=== PATIENT | female | born 2000 | race Two or more races ===

== ENCOUNTER → 2024-10-05 | Outpatient (CLI) | payer BC, SELFPAY ==
--- NOTE | 2024-10-05 11:37 | XR_ITS ---
Examination: Complete OB ultrasound greater than 14 weeks Date and time of exam: September 27, 2024 1138 hours INDICATIONS: Diagnosis high risk , high blood pressure today Findings: Viable intrauterine single fetus with single amniotic sac presentation cephalic spine maternal right Cardiac motion 147 BPM Placenta posterior grade 1 Umbilical cord insertion 3 vessel seen Amniotic fluid index 14.4 cm Cervix 3.9 cm closed Right ovary 2.7 cm arterial flow Left ovary 3.5 cm arterial flow. Composite estimated gestational age based on BPD, head circumference, abdominal circumference, femur length is 27 weeks 1 day Estimated weight 995 g. Survey of intracranial anatomy, spinal anatomy, abdominal anatomy, four-chamber heart performed with no abnormalities identified. Impression: Viable intrauterine gestation cephalic presentation.
[2024-10-05 14:55] LABS: Glucose,1 Hour PP 50gm Dose 141 mg/dL (80-140)
[2024-10-05 16:20] LABS: Syphilis Nonreactive (Nonreactive)
[2024-10-11 07:17] LABS: HIV Ag/Ab, 4th Gen NON-REACTIVE
== END | disposition home or self-care (01) ==
LOC: CDIM 11:30 → COPL 12:07
PROVIDERS: Referring Provider Obstetrics & Gynecology; Visit Provider Obstetrics & Gynecology
DX: O09.93 Supervision of high risk pregnancy, unspecified, third trimester (principal); Z3A.00 Weeks of gestation of pregnancy not specified
CPT/HCPCS: 36415; 76805; 82950; 86780; 87389

== ENCOUNTER → 2024-10-12 | Outpatient (CLI) | payer BC, SELFPAY ==
--- NOTE | 2024-10-12 16:08 | XR_ITS ---
Examination: Complete OB ultrasound greater than 14 weeks Date and time of exam: October 12, 2024, 1617 hours INDICATIONS: Size dates discrepancy, diagnosis high risk , diagnosis -induced hypertension Findings: Viable intrauterine single fetus with single amniotic sac presentation breech spine anterior Placental fundal posterior grade 2 Umbilical cord insertion seen Amniotic fluid index 15.7 cm Cervix 4.2 cm Right ovary 3.1 cm arterial flow. Left ovary 3.4 cm arterial flow. Composite estimated gestational age based on BPD, head circumference, abdominal circumference, femur length is 28 weeks 2 days Estimated weight 1186.6 g. Survey of intracranial anatomy, spinal anatomy, abdominal anatomy, four-chamber heart performed with no abnormalities identified. Impression: Viable uterine gestation breech presentation Estimated gestational age 28 weeks 2 days Estimated weight 1186.6 g.
== END | disposition home or self-care (01) ==
LOC: CDIM 15:58
PROVIDERS: Referring Provider Obstetrics & Gynecology; Visit Provider Obstetrics & Gynecology
DX: O32.1XX0 Maternal care for breech presentation, not applicable or unspecified (principal); Z3A.28 28 weeks gestation of pregnancy
CPT/HCPCS: 76805

== ENCOUNTER → 2024-11-07 | Outpatient (CLI) | payer BC, SELFPAY ==
[2024-11-07 13:16] LABS: Basophils # (Auto) 0.1 Thou/mm3 (0.0-0.2); Basophils % (Auto) 1 % (0-2.5); Eosinophils # (Auto) 0.1 Thou/mm3 (0.0-0.5); Eosinophils % (Auto) 1 % (0-10); Hematocrit 33.2 % (36.0-46.0); Hemoglobin 11.2 g/dL (12.0-16.0); Immature Granulocytes % (Auto) 3 % (0-0); Immature Granulocytes Auto 0.28 Thou/mm3 (0.00-0.00); Lymphocytes # (Auto) 1.5 Thou/mm3 (1.0-4.8); Lymphocytes % (Auto) 14 % (10-50); Mean Corpuscular HGB Conc 33.7 g/dl (31.0-37.0); Mean Corpuscular Hemoglobin 28.4 pg (25.0-35.0); Mean Corpuscular Volume 84 fL (80-100); Monocytes # (Auto) 0.7 Thou/mm3 (0.0-0.8); Monocytes % (Auto) 7 % (0-12); Neutrophils # (Auto) 8.1 Thou/mm3 (1.8-7.7); Neutrophils % (Auto) 76 % (37-80); Nucleated Red Blood Cell % 0 /100 WBC (0); Platelet Count 345 Thou/mm3 (140-440); RDW Standard Deviation 42.9 fL (36.4-46.3); Red Blood Count 3.94 Miln/mm3 (4.00-5.20); White Blood Count 10.7 Thou/mm3 (3.6-11.0)
[2024-11-07 14:01] LABS: Syphilis Nonreactive (Nonreactive)
== END | disposition home or self-care (01) ==
LOC: COPL 11:55
PROVIDERS: PCP Family Medicine; Referring Provider Obstetrics & Gynecology; Visit Provider Obstetrics & Gynecology
DX: O09.93 Supervision of high risk pregnancy, unspecified, third trimester (principal); Z3A.00 Weeks of gestation of pregnancy not specified
CPT/HCPCS: 36415; 85025; 86780; 87389

== ENCOUNTER 2024-12-20 12:29 | Inpatient (IN) | payer MEDICAID, SELFPAY ==
[2024-12-20] VITALS (110 sets, daily range): BP systolic 83–160; BP diastolic 45–84; PULSE 78–127; RESP 18–20; TEMP 36.7–36.9; O2SAT 90–99; BMI 31.6
[2024-12-20 13:15] LABS: ROM Kit Lot # 578010271; ROM Swab Mixed By: JD; Rupture of Fetal Membranes Positive (Negative); Swb Mxed in Solvent 1 min? Yes
--- NOTE | 2024-12-20 13:38 | XR_ITS ---
Examination: Complete OB ultrasound greater than 14 weeks Date and time of exam: December 20, 2024 1400 hours INDICATIONS: Water broke, leaking amniotic fluid today, no care Findings: Viable intrauterine single fetus with single amniotic sac presentation cephalic Cardiac motion 147 BPM Placenta fundal grade 2 Umbilical cord insertion 3 vessel seen Amniotic fluid index 5.8 cm Cervix 3.4 cm Ovaries obscured by bowel gas. Composite estimated gestational age based on BPD, head circumference, abdominal circumference, femur length is 37 weeks 1 day Estimated weight 3311.8 g. Survey of intracranial anatomy, spinal anatomy, abdominal anatomy, four-chamber heart performed with no abnormalities identified. Impression: Viable intrauterine gestation cephalic presentation.
[2024-12-20 15:55] LABS: Basophils % (Auto) 0 % (0-2.5); Eosinophils # (Auto) 0.1 Thou/mm3 (0.0-0.5); Eosinophils % (Auto) 1 % (0-10); Hematocrit 34.4 % (36.0-46.0); Immature Granulocytes % (Auto) 2 % (0-0); Immature Granulocytes Auto 0.18 Thou/mm3 (0.00-0.00); Lymphocytes # (Auto) 1.3 Thou/mm3 (1.0-4.8); Lymphocytes % (Auto) 11 % (10-50); Mean Corpuscular HGB Conc 34.9 g/dl (31.0-37.0); Mean Corpuscular Volume 80 fL (80-100); Monocytes # (Auto) 0.8 Thou/mm3 (0.0-0.8); Monocytes % (Auto) 7 % (0-12); Neutrophils % (Auto) 79 % (37-80); Nucleated Red Blood Cell % 0 /100 WBC (0); Platelet Count 314 Thou/mm3 (140-440); RDW Standard Deviation 42.4 fL (36.4-46.3); Red Blood Count 4.29 Miln/mm3 (4.00-5.20); White Blood Count 11.4 Thou/mm3 (3.6-11.0)
[2024-12-20 16:05] LABS: Amphetamine/Metham Scrn,Ur OB Negative (Negative); Benzoylecgonine Screen, Ur OB Negative (Negative); Opiate Screen,Urine OB Negative (Negative); THC Screen,Urine OB Negative (Negative)
[2024-12-20] MEDS: OXYTOCIN in NS 30 units 30 UNIT/500 ML BAG IV (16:18)
[2024-12-20 16:31] LABS: Syphilis Nonreactive (Nonreactive)
[2024-12-20] MEDS: RINGERS LACTATED 1000 ML 1,000 ML 100 ML IV ×2 (18:41→19:17)
[2024-12-20] MEDS: MINERAL OIL 30 ML UDC TOP (21:28)
[2024-12-20] MEDS: MISOPROSTOL 200 mCg TABLET 800 MCG PR (21:32)
[2024-12-20] MEDS: OXYTOCIN INJ 10 UNIT/ML VIAL IM (21:32)
[2024-12-20] MEDS: METHYLERGONOVINE INJ 0.2 MG/ML VIAL IM (21:39)
[2024-12-20] MEDS: OXYTOCIN in NS 20 units 20 UNIT/1,000 ML BAG 125 UNIT IV (21:43)
[2024-12-20] MEDS: BENZO/LANO/ALOE (Dermoplast) 60 GM CAN 1 SPRAY TOP (21:53)
[2024-12-20] MEDS: TRANEXAMIC ACID 1,000 MG IVPB 1,000 MG/100 ML BAG 200 MG IV ×2 (22:07→23:12)
--- NOTE | 2024-12-20 22:23 | ESHP_ITS ---
Documentation for date of: 12/20/24 OB Labor/Induct. HPI History of Present Illness Chief complaint: ROM : 1 Para: 0 Term pregnancies: 0 pregnancies: 0 Living children: 0 History of Abortions: Spontaneous and Elective: 0 History of Vaginal deliveries: 0 History of sections: No History of : No Date of last menstrual period: 03/30/24 YADIRA: 01/03/25 Gestational Age (weeks): 38 Gestational Age (days): 0 Gestational age based on last menstrual period: 37 History of present illness: This is a 24-year-old 1 para 0 admit to labor and delivery with complaints of leaking fluid since 11 AM. And she also reports starting contractions around 11 as well. Denies social habits. Denies surgery. Denies chronic illness. Patient has been followed both at [facility] and [facility]. Last period March 30, 2024. And this gave a due date of January 03, 2025. Patient had an ultrasound October 05 weeks 1 of that confirmed dates. was uneventful except for UTI that was treated with ampicillin. Patient is A+, antibody screen negative, RPR nonreactive, rubella immune, hepatitis B negative, hep C negative, HIV negative, GC and Chlamydia were negative. 1 hour screen negative. And GBS was negative. Patient had a positive screen for THC. NIPT and carrier screens were negative. Patient was late to care History of Present Dating criteria: LMP confirmed by 2nd trimester US Adequate Care: Yes Ultrasounds: normal mid trimester US Obstetrical complications: none Medical complications: none Labs Labs: Positive: Rubella Titre, Negative: RPR, Hepatitis B, HIV, Chlamydia and Gonorrhea and Unknown: Herpes Type 1, Herpes Type 2, Group Beta Strep and Covid-19 Review of Systems Review of Systems Systems Reviewed: All systems reviewed, normal except as documented Past Medical History Surgical History SURGICAL: Negative Section Meds Home Medications and Allergies Allergies Allergy/AdvReac Type Severity Reaction Status Date / Time No Known Allergies Allergy Verified 12/20/24 12:50 OB Exam Physical Exam Vital signs: Temp Pulse Resp BP Pulse Ox 98.4 F 98 19 113/72 91 L 12/20/24 16:00 12/20/24 21:46 12/20/24 16:00 12/20/24 21:46 06/12/25 21:28 Narrative: Alert and oriented. Normal heart rate and rhythm. Lungs clear no wheezes. Gravid uterus. Gynecoid pelvis. Exam on admission was 80%, 2, -1. Vertex. Leaking clear fluid and positive AmniSure. heart rate category 1 with accelerations and moderate variability. Contractions 4 to 5 minutes apart. And patient had ultrasound that showed vertex presentation and 3300 g EFW was 6 pounds 8 ounces Detailed Labor and Delivery Exam Dilation (cm): 2 Effacement (%): 80 Cervix position: mid station: -1 Consistency: soft Presentation: Vertex Cervical ripeness score: 6 Membranes: ruptured Amniotic fluid: clear Baseline heart rate: 145 monitor accelerations: 15x15 monitor decelerations: None assistant terminal manager variability: Moderate (11-25) Contraction frequency (min): 4-5 Contraction duration (sec): 40 Tachysystole: No Contraction intensity: Moderate OB Results Labs 12/20/24 15:35 Labs: Short CBC 12/20/24 Range/Units 15:35 WBC 11.4 H (3.6-11.0) Thou/mm3 Hgb 12.0 (12.0-16.0) g/dL Hct 34.4 L (36.0-46.0) % Plt Count 314 (140-440) Thou/mm3 OB Assessment & Plan Assessment and Plan (1) Normal labor and delivery: Status: Acute Additional Plan Induction method: none Plan: augmentation, anticipate NVD and consult MD reese
--- NOTE | 2024-12-20 22:29 | OBDSUM_ITS ---
Data ([place]) Data Hx Section: No : 1 Term: 0 : 0 Livin Abortions: Spontaneous & Theraputic: 0 Delivery Data ([place]) Labor Data Initiation of labor: Induction Induction/Augmentation Agent: Pitocin ROM date: 12/20/24 ROM time: 11:30 Amniotic membrane rupture type: Spontaneous Amniotic fluid description: Light Meconium Delivery Data EDC: 01/03/25 EDC calculated by:: ultrasound Date of arrival to unit: 12/20/24 Onset of labor date: 12/20/24 Onset of labor time: 11:30 Complete dilation date: 12/20/24 Complete dilation time: 21:10 delivery date: 12/20/24 [place] delivery time: 21:29 Gestational age (weeks): 38 Gestational age (days): 0 Placenta delivery date: 12/20/24 Placenta delivery time: 21:35 Stage 1 total time: Labor - Stage 1 Duration 9 hours and 40 minutes Delivered by: Ben Villalobos Delivery nurse: Ángel MCDANIEL RN [facility] nurse: Allison MERAZ RN Lane Marker Installer at delivery: No Support person(s) at delivery: FATHER OF BABY ALEXUS Other staff at delivery: Robby NOWAK RN Delivery Method Delivery method: Normal Vaginal Delivery Presentation: Vertex position: OA Anesthesia Type Anesthesia Type: Epidural Delivery Room Medications Delivery room medications: Methergine 0.2 mg IM, Pitocin 10 u IM, Pitocin 20 u IV, Cytotec 800 VT and other (TXA) Placenta Placenta delivery description: Spontaneous (inspected. intact) Cord blood sent to lab: Yes cord blood collection: Cord Blood Type Episiotomy Episiotomy description: Midline Lacerations #1: Vaginal: 1st degree Perineal repair Sutures used for repair: 3.0 Vicryl (2.0) EBL Estimated blood loss (ml): 400 Umbilical Cord cord description: 3 Vessels, Nuchal Cord and Loose (x2) [place] Data ([place]) [place] Data 's gender: Male Identification band number: [id number] 1 minute: 9 5 minutes: 9
[2024-12-21 00:01] VITALS: BP 115/61; PULSE 89
[2024-12-21 04:50] VITALS: BP 117/77; RESP 18; TEMP 36.7
[2024-12-21 05:51] LABS: Basophils % (Auto) 0 % (0-2.5); Eosinophils % (Auto) 0 % (0-10); Hematocrit 30.4 % (36.0-46.0); Hemoglobin 10.6 g/dL (12.0-16.0); Immature Granulocytes % (Auto) 1 % (0-0); Immature Granulocytes Auto 0.17 Thou/mm3 (0.00-0.00); Lymphocytes # (Auto) 1.5 Thou/mm3 (1.0-4.8); Lymphocytes % (Auto) 8 % (10-50); Mean Corpuscular HGB Conc 34.9 g/dl (31.0-37.0); Mean Corpuscular Volume 80 fL (80-100); Monocytes # (Auto) 1.1 Thou/mm3 (0.0-0.8); Monocytes % (Auto) 6 % (0-12); Neutrophils # (Auto) 15.1 Thou/mm3 (1.8-7.7); Neutrophils % (Auto) 84 % (37-80); Nucleated Red Blood Cell % 0 /100 WBC (0); Platelet Count 275 Thou/mm3 (140-440); RDW Standard Deviation 42.5 fL (36.4-46.3); Red Blood Count 3.79 Miln/mm3 (4.00-5.20); White Blood Count 17.9 Thou/mm3 (3.6-11.0)
--- NOTE | 2024-12-21 07:16 | ESDS_ITS ---
DS: Providers Provider Date of admission: 12/20/24 13:44 Primary care physician: Physician No Primary/Family Admitting Provider: Chavez Cheng MD Attending Provider on Admission: Malachi Potter MD Consults: 12/21/24 01:04 Referral Routine Comment: Attending Provider on DC: Malachi Potter MD Discharging Provider: Malachi Potter MD DS: Diagnosis Problem List Completed Was Problem List Reviewed/Reconciled?: Yes Summary/Hosp Course Brief History: This is a 24-year-old 1 para 0 admit to labor and delivery with complaints of leaking fluid since 11 AM. And she also reports starting contractions around 11 as well. Denies social habits. Denies surgery. Denies chronic illness. Patient has been followed both at [facility] and [facility]. Last period March 30, 2024. And this gave a due date of January 03, 2025. Patient had an ultrasound October 05 weeks 1 of that confirmed dates. was uneventful except for UTI that was treated with ampicillin. Patient is A+, antibody screen negative, RPR nonreactive, rubella immune, hepatitis B negative, hep C negative, HIV negative, GC and Chlamydia were negative. 1 hour screen negative. And GBS was negative. Patient had a positive screen for THC. NIPT and carrier screens were negative. Patient was late to care Peripartum Data Delivery Method: Normal Vaginal Delivery Episiotomy Description: Midline Time Spent with Patient Time attestation: Total time spent providing and/or coordinating discharge services: Exam Vital Signs Temp Pulse Resp BP Pulse Ox O2 Del Method 98.0 F 89 18 117/77 91 L Room Air 12/21/24 04:50 12/21/24 00:01 12/21/24 04:50 12/21/24 04:50 12/20/24 21:28 12/21/24 04:50 Discharge Plan Plan Patient Disposition: HOME (Self Care) Patient condition on transfer: Stable Prescriptions/Referrals Prescriptions/Med Rec: New ibuprofen 600 mg tablet 600 mg PO Q6H PRN (Reason: pain) Qty: 30 0RF PNV cmb#95-ferrous fumarate-FA [] 28 mg iron- 800 mcg tablet 1 tab PO QDAY Qty: 90 3RF Referrals: No Primary/Family,Physician [Primary Care Provider] - Patient/Caregiver Discharge Instructions Discharge Activity: activity as tolerated Other Discharge Activity Instructions:: Follow up office with Shannon in 6 wks. Print Language: [place] Island[place] Stand Alone Forms: Shasha Award Info., Patient Portal Info Letter Planned Discharge Date 12/21/24
[2024-12-21 08:00] VITALS: BP 119/79; RESP 16; TEMP 36.8
[2024-12-21] MEDS: DOCUSATE SOD 100 MG CAPSULE PO (09:00)
[2024-12-21] MEDS: IBUPROFEN TAB 400 MG TABLET 800 MG PO ×2 (09:00→17:22)
--- NOTE | 2024-12-21 09:56 | ESPR_ITS ---
RE: OBINNA CLAYTON : 2000 DATE OF SERVICE: 12/21/2024 SUBJECTIVE: day #1, the patient denies any problem or complaint. She is voiding and ambulating and tolerating her diet, passing flatus. She denies any vaginal bleeding. She denies any chest pain, palpitations, shortness of breath, or lower extremity pain. OBJECTIVE: Vital Signs: Blood pressure 117/77, heart rate 88, respirations 18, temperature 98. Lungs: Clear to auscultation bilaterally. Heart: Regular rate and rhythm. Abdomen: Nontender. Extremities: Nontender. ASSESSMENT: day #1, status post spontaneous vaginal delivery. PLAN: Discharge home. Discharge instructions were given. Follow up in the office in 6 weeks. DT: 07:12:44 TT: 09:54:00 Ref: [id number] - TID: [id number]
[2024-12-21 12:10] VITALS: BP 121/77; RESP 18; TEMP 37
--- NOTE | 2024-12-21 12:40 | PD.LDPPPRG ---
Subjective Subjective Interval history: No complaints of pain. No dizziness. Bonding and breast-feeding Exam Vital Signs Temp Pulse Resp BP Pulse Ox O2 Del Method 98.3 F 89 16 119/79 91 L Room Air 12/21/24 08:00 12/21/24 00:01 12/21/24 08:00 12/21/24 08:00 12/20/24 21:28 12/21/24 08:00 Narrative Exam Vital signs stable. Afebrile. Fundus firm below the umbilicus. Perineum has minimal swelling. Midline episiotomy well-approximated. No signs symptoms of infection. Small lochia. Uterus well involuted. 2+ DTRs negative Homans' sign. Breasts are soft Objective Labs 12/21/24 04:45 Labs: Laboratory Results - last 24 hr 12/20/24 12/20/24 12/20/24 12:57 15:10 15:35 WBC 11.4 H RBC 4.29 Hgb 12.0 Hct 34.4 L MCV 80 MCH 28.0 MCHC 34.9 RDW Std Deviation 42.4 Plt Count 314 Neut % (Auto) 79 Lymph % (Auto) 11 [place] % (Auto) 7 Eos % (Auto) 1 Baso % (Auto) 0 Neut # (Auto) 9.0 H Lymph # (Auto) 1.3 [place] # (Auto) 0.8 Eos # (Auto) 0.1 Baso # (Auto) 0.0 Immature Gran # (Auto) 0.18 H Absolute Nucleated RBC 0.00 Immature Gran % 2 H Nucleated RBC % 0 Membrane Rupture Positive A Urine Opiates Screen Negative U Amphetamin/Meth Scrn Negative U Cocaine Metab Screen Negative U Marijuana (THC) Screen Negative Syphilis Serology Nonreactive Blood Type A Positive Antibody Screen NEGATIVE Blood Bank Wristband ID Yes 12/21/24 04:45 WBC 17.9 H D RBC 3.79 L Hgb 10.6 L Hct 30.4 L MCV 80 MCH 28.0 MCHC 34.9 RDW Std Deviation 42.5 Plt Count 275 D Neut % (Auto) 84 H Lymph % (Auto) [address] [place] % (Auto) 6 Eos % (Auto) 0 Baso % (Auto) 0 Neut # (Auto) 15.1 H Lymph # (Auto) 1.5 [place] # (Auto) 1.1 H Eos # (Auto) 0.0 Baso # (Auto) 0.0 Immature Gran # (Auto) 0.17 H Absolute Nucleated RBC 0.00 Immature Gran % 1 H Nucleated RBC % 0 Membrane Rupture Urine Opiates Screen U Amphetamin/Meth Scrn U Cocaine Metab Screen U Marijuana (THC) Screen Syphilis Serology Blood Type Antibody Screen Blood Bank Wristband ID Assessment & Plan Problem List (1) Normal labor and delivery: Status: Acute Assessment Comment Assessment comment: 24 hr pp Plan Comment Plan Comment: Discharge home today. Patient may board if baby is held. Discussed comfort measures for midline episiotomy. Sitz bath's twice a day. Increase fluids. Continue vitamins. Tylenol or ibuprofen for pain. Discussed danger signs and symptoms and ER precautions. Return in 3 weeks for visit with provider Time Spent With Patient Time: Total time spent is greater than 50% in coordination of care (as documented) at patient's floor/unit and/or counseling patient:
--- NOTE | 2024-12-21 12:43 | PD.LDDS ---
DS: Providers Provider Date of admission: 12/20/24 13:44 Primary care physician: Physician No Primary/Family Admitting Provider: Chavez Cheng MD Attending Provider on Admission: Malachi Potter MD Consults: 12/21/24 01:04 Referral Routine Comment: Attending Provider on DC: Shannon Villalobos CNM Discharging Provider: Shannon Villalobos CNM DS: Diagnosis Problem List Completed Was Problem List Reviewed/Reconciled?: Yes Summary/Hosp Course Brief History: This is a 24-year-old 1 para 0 admit to labor and delivery with complaints of leaking fluid since 11 AM. And she also reports starting contractions around 11 as well. Denies social habits. Denies surgery. Denies chronic illness. Patient has been followed both at [facility] and [facility]. Last period March 30, 2024. And this gave a due date of January 03, 2025. Patient had an ultrasound October 05 weeks 1 of that confirmed dates. was uneventful except for UTI that was treated with ampicillin. Patient is A+, antibody screen negative, RPR nonreactive, rubella immune, hepatitis B negative, hep C negative, HIV negative, GC and Chlamydia were negative. 1 hour screen negative. And GBS was negative. Patient had a positive screen for THC. NIPT and carrier screens were negative. Patient was late to care Peripartum Data Delivery Method: Normal Vaginal Delivery Episiotomy Description: Midline (small labial) Laceration Description: yes (labial) complications: none Time Spent with Patient Time attestation: Total time spent providing and/or coordinating discharge services: Exam Vital Signs Temp Pulse Resp BP Pulse Ox O2 Del Method 98.3 F 89 16 119/79 91 L Room Air 12/21/24 08:00 12/21/24 00:01 12/21/24 08:00 12/21/24 08:00 12/20/24 21:28 12/21/24 08:00 Discharge Plan Plan Patient Disposition: HOME (Self Care) Patient condition on transfer: Stable Prescriptions/Referrals Prescriptions/Med Rec: New ibuprofen 600 mg tablet 600 mg PO Q6H PRN (Reason: pain) Qty: 30 0RF PNV cmb#95-ferrous fumarate-FA [] 28 mg iron- 800 mcg tablet 1 tab PO QDAY Qty: 90 3RF Referrals: No Primary/Family,Physician [Primary Care Provider] - Patient/Caregiver Discharge Instructions Meds to Beds: No Discharge Activity: activity as tolerated and resume usual activities Other Discharge Activity Instructions:: Follow up office with provider in 3 week Print Language: [place] Activity Restrictions/Additional Instructions: Discharge home today. Patient may stay on board if baby is held. Discussed wound care and comfort measures for midline episiotomy. Continue Tylenol or ibuprofen for discomfort. Continue vitamins as directed. Increase fluids. No sex. Discussed danger signs symptoms signs of infection. In the ER precautions Stand Alone Forms: Shasha Award Info., Patient Portal Info Letter Discharge Order Discharge Orders: Discharge (Routine); Ordered 12/21/24 Ordered By: Shannon Villalobos Planned Discharge Date 12/21/24
[2024-12-21 16:16] VITALS: BP 111/75; RESP 19; TEMP 36.8
--- NOTE | 2024-12-21 18:32 | PC.NURSE ---
Spoke to Shannon cadmium liquor maker she states mom can be discharged after 24 hours post vaginal delivery around ([phone]) and mom can be a boarder mom since baby will not be discharged today will endorse to [place] shift manager nurse
[2024-12-21 20:00] VITALS: BP 111/71; RESP 18; TEMP 36.6; O2SAT 97
== END 2024-12-21 22:20 | disposition home or self-care (01) | DRG 560 ==
LOC: S4SX 15:07 → S4NX 12-21 00:47
PROVIDERS: Advanced Practice Midwife; Admitting Provider Obstetrics & Gynecology; Visit Provider Specialist
DX: O69.81X0 Labor and delivery complicated by cord around neck, without compression, not applicable or unspecified (principal); O70.0 First degree perineal laceration during delivery; O77.0 Labor and delivery complicated by meconium in amniotic fluid; Z37.0 Single live birth; Z3A.38 38 weeks gestation of pregnancy
CPT/HCPCS: 36415; 59409; 76805; 80307; 84112; 85025; 86780; 86850; 86900; 86901; 94762; J2210; J2590; J2795; J3010; J3490; J7120; S0191; A9270